=== PATIENT | female | born 1950 | race American Indian/Alaskan Native ===

== ENCOUNTER 2017-03-16 07:04 | Outpatient (CLI) | payer MEDICARE, OTHER ==
--- NOTE | 2017-03-16 08:40 | Cat Scan Report ---
CT CHEST WITHOUT CONTRAST: HISTORY: Chest pain. TECHNIQUE: Helical CT with sagittal and coronal reformatted images. FINDINGS: Compared to an AP portable chest dated 04/23/15. CT demonstrates moderate to severe centrilobular emphysematous changes in both lungs. The upper lobes are most affected. A suture line is identified near the right lung apex which probably represents previous bulla removal. Please correlate with the patient's history. There is a large pleural-based soft tissue density mass in the lateral segment of the right lower lobe measuring 6.0 x 3.5 cm in axial plane. There is destructive, expansile mass involving the right posterior seventh rib measuring 3.9 x 2.4 cm in axial plane. There are subtle areas of pleural nodularity posteriorly but no evidence for pleural effusion. These findings are highly concerning for primary lung neoplasm with metastasis. This lung mass and bony lesion are accessible for CT-guided biopsy if needed. The thyroid gland, tracheobronchial tree, esophagus, heart, pericardium and mediastinal vessels are unremarkable. There is no obvious bulky mediastinal adenopathy on noncontrast CT. Limited images of the upper abdomen are unremarkable. No adrenal mass is appreciated. IMPRESSION: Emphysema. Suspicious soft tissue density mass in the lateral right lower lobe and destructive right posterior seventh rib lesion highly concerning for a neoplastic process. Please see above.
== END 2017-03-16 07:05 | disposition home or self-care (01) ==
LOC: CT 07:04
PROVIDERS: ATTEND Specialist
DX: J43.9 Emphysema, unspecified (principal); R07.9 Chest pain, unspecified; R91.8 Other nonspecific abnormal finding of lung field
CPT/HCPCS: 71250